=== PATIENT | female | born 1985 | race Caucasian/White ===

== ENCOUNTER 2018-05-05 13:41 | Emergency (ER) | payer OTHER ==
[2018-05-05] MEDS: ACETAMINOPHEN 325 MG TAB PO (14:51)
[2018-05-05] MEDS: SOD CHLORIDE 0.9% 1,000 ML IV (14:52)
[2018-05-05 15:07] LABS: ADD MAN DIFF? NO
[2018-05-05 15:13] LABS: BASOPHIL # 0.1 10^3/ul (0.0-0.1); BASOPHILS % 0.5 % (0.0-2.0); EOSINOPHILS # 0.2 10^3/ul (0.0-0.5); EOSINOPHILS % 2.2 % (0.0-7.0); HEMATOCRIT 40.5 % (37.0-47.0); HEMOGLOBIN 13.5 g/dl (12.0-16.0); LYMPHOCYTES % 20.1 % (15.0-51.0); MEAN CORPUSCULAR HEMOGLOBIN 29.6 pg (29.0-33.0); MEAN CORPUSCULAR HGB CONC 33.3 g/dl (32.0-37.0); MEAN CORPUSCULAR VOLUME 88.8 fl (82.0-101.0); MEAN PLATELET VOLUME 11.5 fl (7.4-10.4); MONOCYTE # 0.7 10^3/ul (0.3-0.9); MONOCYTES % 6.5 % (0.0-11.0); NEUTROPHIL # 7.1 10^3/ul (1.6-7.5); NEUTROPHILS % 70.4 % (39.0-77.0); PLATELET COUNT 272 10^3/UL (140-415); RED BLOOD COUNT 4.56 10^6/ul (4.20-5.40); RED CELL DISTRIBUTION WIDTH 12.1 % (11.5-14.5)
[2018-05-05 15:21] LABS: ADD UMIC NO; UR ASCORBIC ACID 40 mg/dL (NEGATIVE); UR BILIRUBIN (Dip) NEGATIVE (NEGATIVE); UR BLOOD (Dip) NEGATIVE (NEGATIVE); UR CLARITY CLEAR (CLEAR); UR COLOR YELLOW (YELLOW); UR GLUCOSE (Dip) NEGATIVE (NEGATIVE); UR KETONES (Dip) 2+ mg/dL (NEGATIVE); UR LEUKOCYTE ESTERASE (Dip) NEGATIVE Leu/ul (NEGATIVE); UR NITRITE (Dip) NEGATIVE (NEGATIVE); UR SPECIFIC GRAVITY (Dip) 1.017 (1.003-1.030); UR TOTAL PROTEIN (Dip) NEGATIVE (NEGATIVE); UR UROBILINOGEN (Dip) NEGATIVE (NEGATIVE)
[2018-05-05] MEDS: METOCLOPRAMIDE 10 MG INJ IV (17:03)
== END 2018-05-05 17:58 | disposition home or self-care (01) ==
LOC: FTE 13:41
DX: O26.891 Other specified pregnancy related conditions, first trimester (principal); R10.2 Pelvic and perineal pain; Z3A.10 10 weeks gestation of pregnancy
CPT/HCPCS: 36415; 76705; 76801; 81003; 84702; 85025; 86900; 86901; 96361; 96374; 99285-25

== ENCOUNTER 2018-12-04 06:57 | Inpatient (IN) | payer OTHER ==
[2018-12-04] MEDS ORDERED: METHYLERGONOVINE 0.2 MG INJ IM ×2 (07:30→08:30)
[2018-12-04] MEDS ORDERED: CARBOPROST 250 MCG INJ IM ×2 (07:30→08:30)
[2018-12-04] MEDS ORDERED: MISOPROSTOL 200 MCG TAB PR ×2 (07:30→08:30)
[2018-12-04] MEDS ORDERED: OXYTOCIN 30 UNITS/LR 500 ML IV ×4 (07:30→10:30)
[2018-12-04] MEDS ORDERED: OXYCODONE/ASPIRIN (4.88/325) TAB PO (08:30)
[2018-12-04] MEDS ORDERED: LIDOCAINE 1% (MPF) 30 ML INJ INJ (08:30)
[2018-12-04] MEDS ORDERED: BUTORPHANOL 2 MG INJ IV (08:30)
[2018-12-04] MEDS: LACTATED RINGER'S 1,000 ML IV ×5 (08:41→22:21)
[2018-12-04 09:41] LABS: ADD MAN DIFF? NO
[2018-12-04 09:45] LABS: WHITE BLOOD COUNT 10.3 10^3/ul (4.8-10.8)
[2018-12-04 09:45] LABS: BASOPHIL # 0.1 10^3/ul (0.0-0.1); BASOPHILS % 0.5 % (0.0-2.0); EOSINOPHILS # 0.3 10^3/ul (0.0-0.5); EOSINOPHILS % 2.5 % (0.0-7.0); HEMOGLOBIN 12.1 g/dl (12.0-16.0); LYMPHOCYTES # 1.6 10^3/ul (0.8-2.9); LYMPHOCYTES % 15.2 % (15.0-51.0); MEAN CORPUSCULAR HEMOGLOBIN 28.8 pg (29.0-33.0); MEAN CORPUSCULAR HGB CONC 31.8 g/dl (32.0-37.0); MEAN CORPUSCULAR VOLUME 90.5 fl (82.0-101.0); MEAN PLATELET VOLUME 12.4 fl (7.4-10.4); MONOCYTE # 0.9 10^3/ul (0.3-0.9); MONOCYTES % 8.5 % (0.0-11.0); NEUTROPHIL # 7.5 10^3/ul (1.6-7.5); NEUTROPHILS % 72.6 % (39.0-77.0); PLATELET COUNT 187 10^3/UL (140-415); RED CELL DISTRIBUTION WIDTH 17.2 % (11.5-14.5)
[2018-12-04 09:57] LABS: ADD UMIC NO; UR ASCORBIC ACID NEGATIVE (NEGATIVE); UR BILIRUBIN (Dip) NEGATIVE (NEGATIVE); UR BLOOD (Dip) NEGATIVE (NEGATIVE); UR CALCIUM OXALATE CRYSTAL FEW /HPF (NONE SEEN); UR CLARITY SLIGHTLY CLOUDY (CLEAR); UR COLOR YELLOW (YELLOW); UR GLUCOSE (Dip) NEGATIVE (NEGATIVE); UR KETONES (Dip) TRACE mg/dL (NEGATIVE); UR LEUKOCYTE ESTERASE (Dip) NEGATIVE Leu/ul (NEGATIVE); UR MUCUS FEW /HPF (NONE SEEN); UR NITRITE (Dip) NEGATIVE (NEGATIVE); UR RBC 1 /HPF (0-5); UR SPECIFIC GRAVITY (Dip) 1.025 (1.003-1.030); UR SQUAMOUS EPITHELIAL CELL FEW /HPF (FEW); UR TOTAL PROTEIN (Dip) NEGATIVE (NEGATIVE); UR UROBILINOGEN (Dip) NEGATIVE (NEGATIVE); UR WBC 1 /HPF (0-5)
[2018-12-04 10:06] LABS: INR 0.84; PROTIME 11.6 Sec (11.9-14.9); PT RATIO 0.9
[2018-12-04 10:07] LABS: PARTIAL THROMBOPLASTIN TIME 26.1 Sec (23.0-35.0)
[2018-12-04] MEDS: MISOPROSTOL 50 MCG CAPSULE PO (10:45)
[2018-12-04 11:54] LABS: HEPATITIS B SURFACE ANTIGEN NEGATIVE (NEGATIVE)
[2018-12-04 15:09] LABS: RAPID PLASMA REAGIN NONREACTIVE (NR)
[2018-12-04] MEDS ORDERED: FENTAnyl 2MCG/ML-ROPIV 0.2% 100 ML (17:48)
[2018-12-04] MEDS: OXYTOCIN 30 UNITS/LR 500 ML IV (17:58)
[2018-12-04] MEDS ORDERED: NALOXONE (0.4 MG/ML) INJ IV (18:00)
[2018-12-04] MEDS: FENTAnyl 2MCG/ML-ROPIV 0.2% 100 ML BAG EPI (18:35)
[2018-12-05] MEDS: FENTAnyl 2MCG/ML-ROPIV 0.2% 100 ML BAG EPI ×3 (00:52→14:57)
[2018-12-05] MEDS: LACTATED RINGER'S 1,000 ML IV ×4 (06:03→23:30)
[2018-12-05] MEDS: OXYTOCIN 30 UNITS/LR 500 ML IV ×3 (13:00→21:56)
[2018-12-05] MEDS: ONDANSETRON 4 MG INJ IV (18:38)
[2018-12-05] MEDS ORDERED: CEFAZOLIN 2 GM/50 ML (PMX) 50 ML IVPB (20:30)
[2018-12-05] MEDS ORDERED: KETOROLAC 30 MG INJ (20:33)
[2018-12-05] MEDS ORDERED: LIDOCAINE 1.5%/EPI MPF (SDV) 30 ML VIAL (20:33)
[2018-12-05] MEDS ORDERED: METOCLOPRAMIDE 10 MG INJ (20:33)
[2018-12-05] MEDS ORDERED: ONDANSETRON 4 MG INJ (20:33)
[2018-12-05] MEDS ORDERED: morphine SULFATE/PF (10 MG/10 ML) INJ (20:33)
[2018-12-05] MEDS ORDERED: METHYLERGONOVINE 0.2 MG INJ (20:50)
[2018-12-05] MEDS ORDERED: FENTAnyl 50 MCG/ML VIAL (20:54)
[2018-12-05] MEDS ORDERED: OXYTOCIN 30 UNITS/LR 500 ML IV ×2 (21:22→22:00)
[2018-12-05] MEDS ORDERED: NALOXONE (0.4 MG/ML) INJ IV (21:30)
[2018-12-05] MEDS ORDERED: morphine 2 MG INJ IV ×6 (21:30)
[2018-12-05] MEDS ORDERED: ONDANSETRON 4 MG INJ IV ×2 (21:30)
[2018-12-05] MEDS ORDERED: DIPHENHYDRAMINE 50 MG INJ IV ×2 (21:30)
[2018-12-05] MEDS ORDERED: METHYLERGONOVINE 0.2 MG INJ IM (22:00)
[2018-12-05] MEDS ORDERED: MISOPROSTOL 200 MCG TAB PR (22:00)
[2018-12-05] MEDS ORDERED: METHYLERGONOVINE 0.2 MG TAB PO (22:00)
[2018-12-05] MEDS ORDERED: CARBOPROST 250 MCG INJ IM (22:00)
[2018-12-06] MEDS: OXYTOCIN 30 UNITS/LR 500 ML IV (02:09)
[2018-12-06 08:21] LABS: ADD MAN DIFF? NO
[2018-12-06 08:33] LABS: ABNORMAL IP MESSAGE 1; BASOPHILS % 0.2 % (0.0-2.0); EOSINOPHILS # 0.1 10^3/ul (0.0-0.5); EOSINOPHILS % 0.7 % (0.0-7.0); HEMATOCRIT 32.6 % (37.0-47.0); HEMOGLOBIN 10.7 g/dl (12.0-16.0); LYMPHOCYTES # 1.2 10^3/ul (0.8-2.9); LYMPHOCYTES % 7.2 % (15.0-51.0); MEAN CORPUSCULAR HEMOGLOBIN 29.2 pg (29.0-33.0); MEAN CORPUSCULAR HGB CONC 32.8 g/dl (32.0-37.0); MEAN CORPUSCULAR VOLUME 88.8 fl (82.0-101.0); MEAN PLATELET VOLUME 11.9 fl (7.4-10.4); MONOCYTE # 1.8 10^3/ul (0.3-0.9); MONOCYTES % 11.4 % (0.0-11.0); NEUTROPHIL # 12.8 10^3/ul (1.6-7.5); PLATELET COUNT 163 10^3/UL (140-415); RED BLOOD COUNT 3.67 10^6/ul (4.20-5.40); RED CELL DISTRIBUTION WIDTH 17.1 % (11.5-14.5)
[2018-12-06 08:34] LABS: POSITIVE DIFF @See below
[2018-12-06] MEDS: SENNA/DOCUSATE NA (8.6MG/50MG) TAB PO ×2 (08:50→21:21)
[2018-12-06] MEDS: LANOLIN HPA 1 PKT TOP (08:50)
[2018-12-06 08:58] LABS: ANION GAP 7 (5-13); BLOOD UREA NITROGEN 7 mg/dl (7-20); CALCIUM 8.6 mg/dl (8.4-10.2); CARBON DIOXIDE 21 mmol/L (21-31); CHLORIDE 109 mmol/L (97-110); CREATININE 0.54 mg/dl (0.44-1.00); Estimated GFR > 60 mL/min (>60); GLUCOSE 73 mg/dl (70-220); POTASSIUM 3.7 mmol/L (3.5-5.1); SODIUM 137 mmol/L (135-144)
[2018-12-06] MEDS: LACTATED RINGER'S 1,000 ML IV (11:21)
[2018-12-06] MEDS: KETOROLAC 30 MG INJ IV ×2 (12:15→20:12)
[2018-12-06] MEDS: HYDROCODONE/APAP (5/325) TAB PO (23:50)
[2018-12-07] MEDS: HYDROCODONE/APAP (5/325) TAB PO ×2 (05:48→09:25)
[2018-12-07] MEDS: SENNA/DOCUSATE NA (8.6MG/50MG) TAB PO ×3 (08:59→20:59)
[2018-12-07] MEDS: IBUPROFEN 600 MG TAB PO (12:34)
[2018-12-07] MEDS: BISACODYL (EC) 5 MG TAB PO (15:23)
[2018-12-07] MEDS: MAGNESIUM HYDROXIDE 30ML CUP PO (15:32)
[2018-12-07] MEDS: BISACODYL 10 MG SUPP PR (15:32)
[2018-12-07] MEDS: IBUPROFEN 800 MG TAB PO ×2 (17:51→22:45)
[2018-12-07] MEDS ORDERED: BISACODYL (EC) 5 MG TAB PO (20:00)
[2018-12-07] MEDS ORDERED: MAGNESIUM HYDROXIDE 30ML CUP PO (20:00)
[2018-12-08] MEDS: IBUPROFEN 800 MG TAB PO (03:58)
[2018-12-08] MEDS: HYDROCODONE/APAP (5/325) TAB PO ×2 (04:57→11:06)
[2018-12-08 06:57] LABS: ADD MAN DIFF? NO
[2018-12-08 07:01] LABS: BASOPHIL # 0.1 10^3/ul (0.0-0.1); BASOPHILS % 0.5 % (0.0-2.0); EOSINOPHILS # 0.5 10^3/ul (0.0-0.5); EOSINOPHILS % 4.6 % (0.0-7.0); HEMATOCRIT 31.1 % (37.0-47.0); HEMOGLOBIN 9.9 g/dl (12.0-16.0); LYMPHOCYTES # 1.3 10^3/ul (0.8-2.9); MEAN CORPUSCULAR HEMOGLOBIN 28.7 pg (29.0-33.0); MEAN CORPUSCULAR HGB CONC 31.8 g/dl (32.0-37.0); MEAN CORPUSCULAR VOLUME 90.1 fl (82.0-101.0); MONOCYTE # 1.1 10^3/ul (0.3-0.9); MONOCYTES % 10.2 % (0.0-11.0); NEUTROPHIL # 7.9 10^3/ul (1.6-7.5); NEUTROPHILS % 72.2 % (39.0-77.0); PLATELET COUNT 176 10^3/UL (140-415); RED BLOOD COUNT 3.45 10^6/ul (4.20-5.40); RED CELL DISTRIBUTION WIDTH 17.2 % (11.5-14.5)
[2018-12-08 07:01] LABS: WHITE BLOOD COUNT 10.9 10^3/ul (4.8-10.8)
[2018-12-08] MEDS: MEASLES,MUMPS,RUBELLA VACCINE INJ SC* (09:00)
[2018-12-08] MEDS: DIPHTH/TET/ACEL PERTUSS (ADULT) 0.5 ML VIAL IM* (09:00)
== END 2018-12-08 14:26 | disposition home or self-care (01) | DRG 788 ==
LOC: L-D 06:57 → PP1 12-05 23:56
PROVIDERS: Obstetrics & Gynecology
PROC: 10D00Z1 Extraction of Products of Conception, Low, Open Approach (ICD-10-PCS; principal; 2018-12-05)
DX: O48.0 Post-term pregnancy (principal); O62.0 Primary inadequate contractions; O36.63X0 Maternal care for excessive fetal growth, third trimester, not applicable or unspecified; Z37.0 Single live birth; Z3A.40 40 weeks gestation of pregnancy
CPT/HCPCS: 62322; 76816; 80048; 81001; 81003; 85025; 85610; 85730; 86592; 86850; 86900; 86901; 87340; 99464